=== PATIENT | female | born 1995 | race African-American/Black ===

== ENCOUNTER 2020-06-06 05:59 | Emergency (ER) | payer OTHER ==
[~2020-06-06] VITALS: Ht 180.3 cm; Wt 77.6 kg
[2020-06-06 06:12] VITALS: Ht 180.3 cm; Wt 77.6 kg
[2020-06-06 07:16] LABS: BASOPHIL % 0.9 % (0-2); PLATELET COUNT 315 x10^3mcL (130-400); RED CELL DISTRIBUTION WIDTH 14.2 % (11.5-14.5)
[2020-06-06 07:37] LABS: CALCIUM 8.7 mg/dL (8.5-10.1); CARBON DIOXIDE 29.8 mmol/L (21-32); CHLORIDE SERUM 102 mmol/L (98-107); CREATININE SERUM 0.8 mg/dL (0.6-1.0); GFR1 > 60 mL/min; GLUCOSE SERUM 90 mg/dL (74-106); POTASSIUM SERUM 3.8 mmol/L (3.5-5.1); SODIUM SERUM 136 mmol/L (136-145)
[2020-06-06 07:38] LABS: T3 TOTAL 1.28 ng/mL
[2020-06-06 07:44] LABS: ALBUMIN 3.8 g/dL (3.4-5.0); ALKALINE PHOSPHATASE 52 U/L (46-116); ALT/SGPT 14 U/L (14-59); AST/SGOT 12 U/L (15-37); BILIRUBIN TOTAL 0.49 mg/dL (0.20-1.00); CHOLESTEROL 139 mg/dL (<200); CHOLESTEROL/HDL RATIO 2.3; HDL CHOLESTEROL 60 mg/dL (40-60); LIPASE 110 IU/L (73-393); TOTAL PROTEIN, SERUM 7.7 g/dL (6.4-8.2); TRIGLYCERIDES 39 mg/dL (<150)
[2020-06-06 07:53] LABS: FREE T4 1.06 ng/dL (0.76-1.46); FREE THYROXINE INDEX 2.8 ug/dL (1.4-4.5); T4(THYROXINE) 8.2 ug/dL (4.7-13.3)
[2020-06-06 08:30] VITALS: BP 122/78
== END 2020-06-06 08:30 | disposition home or self-care (01) ==
LOC: ED 05:59
PROVIDERS: Specialist
DX: R07.2 Precordial pain (principal); J45.909 Unspecified asthma, uncomplicated; J44.9 Chronic obstructive pulmonary disease, unspecified
CPT/HCPCS: 83880; 84439; J1885; J3490; Q0092